=== PATIENT | male | born 1970 | race Caucasian/White ===

== ENCOUNTER 2021-04-17 09:07 | Emergency (ER) | payer OTHER, SELFPAY ==
--- NOTE | ~2021-04-17 | XR_ITS ---
EXAMINATION: XR foot RT min 3V DATE: 04/17/2021 11:57 INDICATION: Right foot pain TECHNIQUE: Dorsoplantar, two oblique and lateral views of the right foot were obtained. COMPARISON: None. FINDINGS: Alignment is normal. No fracture. Mild osteoarthritis at the first metatarsophalangeal joint. No tamra osteal reaction or cortical erosions. Soft tissues are unremarkable. IMPRESSION: 1. Mild osteoarthritis at the first metatarsophalangeal joint. No acute osseous abnormality. Reviewed, dictated and finalized at location A.
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
[2021-04-17 09:08] VITALS: BP 131/92; PULSE 96; RESP 20; TEMP 36.7; O2SAT 100
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
[2021-04-17 10:24] VITALS: BP 143/83; PULSE 96; RESP 20; O2SAT 99
[2021-04-17 13:20] VITALS: BP 110/70; PULSE 93; RESP 19; O2SAT 100
== END 2021-04-17 13:21 | disposition home or self-care (01) ==
PROVIDERS: Emergency Provider Emergency Medicine
DX: S01.01XA Laceration without foreign body of scalp, initial encounter (principal); F17.200 Nicotine dependence, unspecified, uncomplicated; M19.071 Primary osteoarthritis, right ankle and foot; Y00.XXXA Assault by blunt object, initial encounter
CPT/HCPCS: 12002; 70450; 73630; 99284